=== PATIENT | male | born 1990 | race Caucasian/White ===

== ENCOUNTER 2018-08-20 21:11 | Emergency (ER) | payer SELFPAY ==
[2018-08-20 21:26] VITALS: BP 135/80
--- NOTE | 2018-08-20 21:41 | EDM.PDOC ---
ED HPI GENERAL MEDICAL PROBLEM - General Chief Complaint: Eye Problems Stated Complaint: EYE PROBLEM Time Seen by Provider: 08/20/18 21:36 Source of Information: Reports: Patient - History of Present Illness INITIAL COMMENTS - FREE TEXT/NARRATIVE: Darian Hickman presents to our ED with bilateral eye pain and drainage. Reports symptoms started in his left eye when he woke this morning they been itchy and painful. He is also noticed some greenish yellow discharge. Reports symptoms then moved to his right eye although his left eye is still worse. He has no known sick contacts and reports that no but he's been around has had pinkeye that he is aware of. Denies any other infectious symptoms. He has no allergies. He has no medications. He does not wear contact lenses. Denies any nausea, vomiting, chest pain, shortness of breath, congestion, ear pain. - Related Data Allergies Allergy/AdvReac Type Severity Reaction Status Date / Time No Known Allergies Allergy Verified 08/20/18 21:28 Home Meds: Home Meds Tobramycin 0.3% [Tobramycin 0.3% Ophth Soln] 1 drop OP QID 7 Days #1 bottle [Rx] Past Medical History - Past Surgical History GI Surgical History: Reports: Hernia, Abdominal Male Surgical History: Reports: Other (See Below) Social & Family History - Tobacco Use Smoking Status *Q: Current Every Day Smoker Years of Tobacco use: 13 Packs/Tins Daily: 2 - Caffeine Use Caffeine Use: Reports: Coffee - Recreational Drug Use Recreational Drug Use: No - Living Situation & Occupation Living situation: Reports: Single, with Family ED ROS GENERAL - Review of Systems Review Of Systems: ROS reveals no pertinent complaints other than HPI. ED EXAM GENERAL W FULL EYE - Physical Exam Exam: See Below Exam Limited By: No Limitations General Appearance: Alert, WD/WN, No Apparent Distress Eye Exam: Bilateral Eye: Conjunctival Injection, EOMI, PERRL, Other ( Bilaterally eyes are very watery. There is some greenish discharge noted more prevalent on left than right.) Ears: Normal External Exam Nose: Normal Inspection Course - Vital Signs Last Recorded V/S: Last Vital Signs Temp 98.4 F 08/20/18 21:24 Pulse 76 08/20/18 21:24 Resp 16 08/20/18 21:24 BP 135/80 08/20/18 21:24 Pulse Ox 95 08/20/18 21:24 Departure - Departure Time of Disposition: 21:39 Disposition: Home, Self-Care 01 Clinical Impression: Conjunctivitis Qualifiers: Conjunctivitis type: acute Acute conjunctivitis type: unspecified Laterality: bilateral Qualified Code(s): H10.33 - Unspecified acute conjunctivitis, bilateral - Discharge Information *PRESCRIPTION DRUG MONITORING PROGRAM REVIEWED*: No *COPY OF PRESCRIPTION DRUG MONITORING REPORT IN PATIENT NÉSTOR: No Prescriptions: Tobramycin 0.3% [Tobramycin 0.3% Ophth Soln] 1 drop OP QID 7 Days #1 bottle Instructions: Bacterial Conjunctivitis, [id number], How to Use Eye Drops and Eye Ointments Referrals: PCP,None [Primary Care Provider] - Additional Instructions: You presented to our ED today and were diagnosed with bilateral conjunctivitis, also known as "pink eye." An antibiotic eyedrop was sent to the pharmacy in [facility] [place]. He should take this antibiotic 4 times a day into both of your eyes being careful not to touch her eyeball with the and of the bottle. He should continue this for 7 days. Be sure to wash her hands frequently and avoid itching or rubbing her eyes as this is easily spread. Should symptoms continue or worsen return to the ED or contact your primary care provider.
== END 2018-08-20 21:52 | disposition home or self-care (01) ==
LOC: JD.ED 21:11
DX: H10.33 Unspecified acute conjunctivitis, bilateral (principal); F17.210 Nicotine dependence, cigarettes, uncomplicated
CPT/HCPCS: 99282; 99283

== ENCOUNTER 2019-06-19 15:29 | Emergency (ER) | payer OTHER ==
[2019-06-19 17:05] VITALS: BP 111/77; PULSE 79
[2019-06-19] MEDS ORDERED: Albuterol/Ipratropium 3.0-0.5 MG/3 ML Neb Soln NEB ONE (17:57)
[2019-06-19] MEDS ORDERED: predniSONE 20 MG Tab PO ONE (17:57)
--- NOTE | 2019-06-19 18:13 | EDM.PDOC ---
<Galina Grier - Last Filed: 06/19/19 18:07> ED HPI GENERAL MEDICAL PROBLEM - General Chief Complaint: Respiratory Problem Stated Complaint: SOB Time Seen by Provider: 06/19/19 17:37 Source of Information: Reports: Patient History Limitations: Reports: No Limitations - History of Present Illness INITIAL COMMENTS - FREE TEXT/NARRATIVE: Patient is a pleasant 28-year-old male who presents with complaints of shortness of breath and a dry cough that has been present for 3-4 weeks. He states he started having the trouble with his breathing soon after he quit smoking cigarettes one month ago. When he quit smoking cigarettes, he started vaping and states he probably vapes more nicotine than he did when he smoked the cigarettes. He states the shortness of breath worsens when he lays flat and that the shortness of breath wakes him up at night. He reports chest pain due to the coughing episodes he has been experiencing. He reports he has been using his mother's albuterol nebulizers every 6 hours for the shortness of breath for the past few weeks and has used her albuterol inhaler a few times as well. He does report a history of asthma when he was a child but has not had to use an albuterol inhaler in over eight years. Denies fever, chills, and abdominal pain. Onset: Gradual Duration: Week(s):, Constant - Related Data Allergies Allergy/AdvReac Type Severity Reaction Status Date / Time No Known Allergies Allergy Verified 08/20/18 21:28 Home Meds: Home Meds Tobramycin 0.3% [Tobramycin 0.3% Oph Soln] 1 drop OP QID 7 Days #1 bottle [Rx] predniSONE [Prednisone] 40 mg PO DAILY #10 tablet 06/19/19 [Rx] Past Medical History - Past Surgical History GI Surgical History: Reports: Hernia, Abdominal Male Surgical History: Reports: Other (See Below) Social & Family History - Caffeine Use Caffeine Use: Reports: Coffee - Living Situation & Occupation Living situation: Reports: Single, with Family ED ROS GENERAL - Review of Systems Review Of Systems: See Below Constitutional: Reports: No Symptoms. Denies: Fever, Chills, Weakness, Fatigue HEENT: Reports: No Symptoms. Denies: Throat Pain Respiratory: Reports: Shortness of Breath, Cough (non-productive). Denies: Wheezing, Hemoptysis Cardiovascular: Reports: Chest Pain (with coughing). Denies: Edema, Lightheadedness, Syncope GI/Abdominal: Reports: No Symptoms. Denies: Abdominal Pain, Diarrhea, Nausea, Vomiting Musculoskeletal: Reports: No Symptoms. Denies: Neck Pain, Back Pain Skin: Reports: No Symptoms. Denies: Rash, Erythema Neurological: Reports: No Symptoms. Denies: Dizziness, Headache, Syncope Psychiatric: Reports: No Symptoms ED EXAM, GENERAL - Physical Exam Exam: See Below Exam Limited By: No Limitations General Appearance: Alert, WD/WN, No Apparent Distress Head: Atraumatic, Normocephalic Neck: Normal Inspection, Supple, Non-Tender, Full Range of Motion Respiratory/Chest: No Respiratory Distress, No Accessory Muscle Use, Chest Non- Tender. No: Rales, Rhonchi, Wheezing (at end of expiration in upper lobes) Cardiovascular: Normal Peripheral Pulses, Regular Rate, Rhythm, No Edema, No Gallop, No Murmur, No Rub GI/Abdominal: Normal Bowel Sounds, Soft, Non-Tender, No Organomegaly, No Distention, No Mass Back Exam: Normal Inspection, Full Range of Motion, NT Extremities: Normal Inspection, Normal Range of Motion, Non-Tender, Normal Capillary Refill, No Pedal Edema Neurological: Alert, Oriented, Normal Cognition, Normal Gait, No Motor/Sensory Deficits Psychiatric: Normal Affect, Normal Mood Skin Exam: Warm, Dry, Intact, Normal Color, No Rash Lymphatic: No Adenopathy Course - Vital Signs Last Recorded V/S: Last Vital Signs Temp 98.5 F 06/19/19 17:02 Pulse 79 06/19/19 17:02 Resp 16 06/19/19 17:02 BP 111/77 06/19/19 17:02 Pulse Ox 100 06/19/19 18:08 - Orders/Labs/Meds Orders: Active Orders 24 hr Category Date Time Status RT Aerosol Therapy [RC] ASDIRECTED Care 06/19/19 17:57 Active Meds: Medications Discontinued Medications Generic Name Dose Route Start Last Admin Trade Name Freq PRN Reason Stop Dose Admin Albuterol/Ipratropium 3 ml 06/19/19 17:57 06/19/19 18:07 Duoneb 3.0-0.5 Mg/3 Ml NEB 06/19/19 17:58 3 ml ONETIME ONE Administration Prednisone 40 mg 06/19/19 17:57 06/19/19 18:04 Prednisone PO 06/19/19 17:58 40 mg ONETIME ONE Administration Departure - Departure Disposition: Home, Self-Care 01 Clinical Impression: Reactive airway disease Qualifiers: Asthma severity: moderate Asthma persistence: persistent Asthma complication type: with acute exacerbation Qualified Code(s): J45.41 - Moderate persistent asthma with (acute) exacerbation - Discharge Information Prescriptions: predniSONE [Prednisone] 40 mg PO DAILY #10 tablet Referrals: PCP,None [Primary Care Provider] - Aliyah Blevins PA-C [Physician Blending Tank Tender Helper] - 1 Week Forms: ED Department Discharge Additional Instructions: Try to stop vaping. Take the prednisone 40mg daily for 5 days starting tomorrow. Use the albuterol nebs every 6 hours. Please return if you are worse. Sepsis Event Note - Evaluation Sepsis Screening Result: No Definite Risk - Focused Exam Vital Signs: Vital Signs Temp Pulse Resp BP Pulse Ox Pulse Ox 06/19/19 18:08 100 06/19/19 17:02 98.5 F 79 16 111/77 97 Date Exam was Performed: 06/19/19 Time Exam was Performed: 18:07 - My Orders Last 24 Hours: My Active Orders 06/19/19 17:57 RT Aerosol Therapy [RC] ASDIRECTED - Assessment/Plan Last 24 Hours: My Active Orders 06/19/19 17:57 RT Aerosol Therapy [RC] ASDIRECTED <Zuhair Wallace - Last Filed: 06/19/19 19:46> Course - Re-Assessments/Exams Free Text/Narrative Re-Assessment/Exam: 06/19/19 19:39 I examined the patient myself and I agree with Galina's assessment and plan. I ordered a duoneb, prednisone and a CXR. His CXR looks good. I will need to get him on some prednisone. Departure - Departure Time of Disposition: 19:45 Condition: Good - Discharge Information *PRESCRIPTION DRUG MONITORING PROGRAM REVIEWED*: Not Applicable *COPY OF PRESCRIPTION DRUG MONITORING REPORT IN PATIENT NÉSTOR: Not Applicable Sepsis Event Note - Focused Exam Date Exam was Performed: 06/19/19 Time Exam was Performed: 19:39
--- NOTE | 2019-06-19 19:22 | CR ---
Chest: 2 views of the chest are obtained. Comparison: Prior chest x-ray of 07/13/13. Heart size and mediastinum are normal. Lungs are clear with no acute parenchymal change. Bony structures appear within normal limits for the patient's age. Impression: 1. Nothing acute is seen on 2 view chest x-ray. Diagnostic code #1 Study was dictated in [place] Standard Time
== END 2019-06-19 19:50 | disposition home or self-care (01) ==
LOC: JD.ED 15:29
DX: J45.41 Moderate persistent asthma with (acute) exacerbation (principal)
CPT/HCPCS: 71046; 94640; 99285; A9270; 99283; J7620-GY

== ENCOUNTER 2019-12-04 10:06 | Emergency (ER) | payer SELFPAY ==
[2019-12-04 10:18] VITALS: BP 114/79; PULSE 65
--- NOTE | 2019-12-04 10:29 | EDM.PDOC ---
ED HPI GENERAL MEDICAL PROBLEM - General Chief Complaint: Respiratory Problem Stated Complaint: SOB Time Seen by Provider: 12/04/19 11:05 Source of Information: Reports: Patient History Limitations: Reports: No Limitations - History of Present Illness INITIAL COMMENTS - FREE TEXT/NARRATIVE: 29-year-old male presents to the ED with significant wheezing and dyspnea at rest. Patient symptoms date back to at least April of last year. He was worse in the month of May when he was exposed to cool air. He was seen in the ED on the month of June and prescribed a short 5-day course of steroids which did help immensely. Patient states that over the last few days he has become more short of breath and wheezy. Albuterol nebulizer machine at home as well as metered-dose inhaler have not been helping resolve the wheezing. He denies any upper respiratory tract infection cough or sputum production. No known exposure to COVID-19 virus. He reports he is still smoking a pack per day of cigarettes. Does have a mild smoker's cough. He has an appointment to see Dr. Norman Patel in 3 days time but due to inability to sleep all night and increased shortness of breath elected to come to the ED for evaluation. O2 sats were 93 to 95% on room air. Onset: Gradual Onset Date: 12/02/19 (Tonic problems with asthma symptoms i.e. shortness of breath and wheezing much worse the last 3 days.) Duration: Chronic, Getting Worse Location: Reports: Chest (Rest of breath with audible wheezing.) Quality: Reports: Pressure (Central pressure in upper chest.) Severity: Severe Improves with: Reports: Rest, Other (Transient relief of symptoms with albuterol metered-dose inhaler and home nebulizer albuterol.) Worsens with: Reports: Other Context: Denies: Activity, Exercise (This with exertion.), Lifting, Sick Contact, Trauma, Other Associated Symptoms: Reports: Chest Pain, Cough (Nonproductive cough related to smoking.), Malaise, Shortness of Breath. 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 (see below) (Butyryl metered-dose inhaler and home nebulizer treatment 6 times daily) - Related Data Allergies Allergy/AdvReac Type Severity Reaction Status Date / Time No Known Allergies Allergy Verified 12/04/19 10:19 Home Meds: Home Meds Albuterol Sulfate [Albuterol Sulfate Hfa] 2 puff INH 6XDAY PRN 12/04/19 [History] Albuterol [Proventil Neb Soln] 3 ml NEB 6XDAY PRN 12/04/19 [History] Fluticasone Propionate [Flovent HFA 110 MCG] 2 puff INH BID #1 inhaler 12/04/19 [Rx] predniSONE [Prednisone] 20 mg PO ASDIRECTED #18 tablet 12/04/19 [Rx] Past Medical History Respiratory History: Reports: Asthma Other Respiratory History: asthma as a child - Past Surgical History GI Surgical History: Reports: Hernia, Abdominal Male Surgical History: Reports: Other (See Below) Musculoskeletal Surgical History: Reports: Other (See Below) Other Musculoskeletal Surgeries/Procedures:: Surgery to finger on left hand Social & Family History - Family History Family Medical History: Noncontributory - Tobacco Use Smoking Status *Q: Current Every Day Smoker Years of Tobacco use: 14 Packs/Tins Daily: 1 - Caffeine Use Caffeine Use: Reports: Coffee, Energy Drinks, Soda, Tea - Recreational Drug Use Recreational Drug Use: Yes Drug Use in Last 12 Months: No Recreational Drug Type: Reports: Marijuana/Hashish Recreational Drug Use Frequency: Not Used In Over 6 Months - Living Situation & Occupation Living situation: Reports: Single, with Family ED ROS GENERAL - Review of Systems Review Of Systems: See Below Constitutional: Reports: Malaise, Fatigue, Decreased Appetite (Not sleeping all night.). Denies: Fever, Chills HEENT: Reports: No Symptoms Respiratory: Reports: Shortness of Breath, Wheezing, Cough. Denies: Pleuritic Chest Pain, Sputum, Hemoptysis (No worse than usual. Related to smoking.) Cardiovascular: Reports: Chest Pain, Dyspnea on Exertion. Denies: Blood Pressure Problem (Central chest pressure discomfort.), Claudication, Edema, Lightheadedness, Orthopnea, Palpitations Endocrine: Reports: Fatigue GI/Abdominal: Reports: No Symptoms : Reports: No Symptoms Musculoskeletal: Reports: No Symptoms Skin: Reports: No Symptoms Neurological: Reports: No Symptoms Psychiatric: Reports: No Symptoms Hematologic/Lymphatic: Reports: No Symptoms Immunologic: Reports: No Symptoms ED EXAM, GENERAL - Physical Exam Exam: See Below Exam Limited By: No Limitations General Appearance: Alert, WD/WN, Moderate Distress, Other (Gino distress. She is 36.6. Heart rate 65 and sinus respiratory of 18 with sats of 93 to 95% on room air. BP 114/79.) Eye Exam: Bilateral Eye: Normal Inspection, PERRL Ears: Normal TMs Nose: Nasal Flaring Throat/Mouth: Normal Inspection, Normal Lips, Normal Oropharynx, Other (Normal sized tonsils.) Head: Atraumatic, Normocephalic Neck: Normal Inspection, Supple, Non-Tender, Full Range of Motion. No: Carotid Bruit, Lymphadenopathy (L), Lymphadenopathy (R) Respiratory/Chest: No Accessory Muscle Use, Chest Non-Tender, Respiratory Distress, Decreased Breath Sounds (Lungs are diminished to the lower 40% of lung vang bilaterally.), Wheezing (Diffuse wheezing in all lung vang on expiration). No: Lungs Clear, Normal Breath Sounds Cardiovascular: Normal Peripheral Pulses, Regular Rate, Rhythm, No Edema, No Gallop, No Murmur, No Rub Peripheral Pulses: 3+: Carotid (L), Carotid (R), Posterior Tibial (L), Posterior Tibial (R), Dorsalis Pedis (L), Dorsalis Pedis (R) GI/Abdominal: Normal Bowel Sounds, Soft, Non-Tender, No Organomegaly, No Abnormal Bruit, No Mass, Pelvis Stable, Other (No surgical scars) (Male) Exam: No Hernia Back Exam: Normal Inspection, Full Range of Motion. No: CVA Tenderness (L), CVA Tenderness (R) Extremities: Normal Inspection, Normal Range of Motion, Non-Tender, No Pedal Edema Neurological: Alert, Oriented, CN II-XII Intact, Normal Cognition Psychiatric: Normal Affect, Normal Mood Skin Exam: Warm, Dry, Intact, Normal Color, No Rash Course - Vital Signs Last Recorded V/S: Last Vital Signs Temp 36.6 C 12/04/19 10:14 Pulse 65 12/04/19 10:14 Resp 18 12/04/19 10:14 BP 114/79 12/04/19 10:14 Pulse Ox 90 L 12/04/19 12:07 - Orders/Labs/Meds Orders: Active Orders 24 hr Category Date Time Status RT Aerosol Therapy [RC] ASDIRECTED Care 12/04/19 11:21 Active Chest 1V Frontal [CR] Stat Exams 12/04/19 11:22 Taken Meds: Medications Discontinued Medications Generic Name Dose Route Start Last Admin Trade Name Nakia PRN Reason Stop Dose Admin Albuterol/Ipratropium 3 ml 12/04/19 11:21 12/04/19 12:53 Duoneb 3.0-0.5 Mg/3 Ml NEB 3 ml Q4H PRN Administration Shortness Of Breath/wheezing Prednisone 30 mg 12/04/19 11:26 12/04/19 12:31 Prednisone PO 12/04/19 11:27 30 mg ONETIME ONE Administration - Radiology Interpretation Free Text/Narrative:: 29-year-old male resents to the ED with acute exacerbation of what sounds like chronic asthma. Sounds like he has been having symptoms of asthma with wheezing shortness of breath attacks since April of last year. In spite of this he continues to smoke a pack of cigarettes per day.. Symptoms are much worse over the last 3 days. He was up all night due to dyspnea and inability to lie flat due to shortness of breath. No improvement with home nebulizer medicine every 4 hours i.e. albuterol. Metered-dose inhaler has not been helping at all either. Patient has been placed on one course of steroids in June of this year for 5 days which did improve his symptoms. Minimal cough at this time he is afebrile. O2 sats are 93 to 95% on room air. Exam reveals him to be wheezing throughout all lung vang with decreased air entry to both lower lung vang posteriorly. Plan 1 view chest x-ray to be done. Pulmonary function studies to be done. He will have a DuoNeb treatment now and likely require repeat in 20 minutes or so. Prednisone 30 mg by mouth to be given now. - Re-Assessments/Exams Free Text/Narrative Re-Assessment/Exam: 12/04/19 13:00: He is feeling much improved after being treated with DuoNeb and albuterol during his lung function studies. Function studies are definitely positive for obstructive airway disease. The FVC, FEV1, FEV1, FVC ratio and FEF F 25 to 75% of predicted normal there was a significant response to administered albuterol. And the patient will be discharged on Flovent 110 mcg/puff. He will use 2 puffs morning and bedtime until he regains control of his asthma. He is to continue use albuterol either via metered-dose inhaler or nebulizer as needed every 2 hours and. Placed on prednisone 20 mg twice daily for the next 6 days and then 1 tablet the morning only for another 6 days to bring acute relief to his dyspnea and wheezing. He is strongly encouraged that he must stop smoking as he has the lungs of an 81-year-old at present. Advised to follow-up with Dr. Norman Patel in 3 days time as planned as he will need someone to refill his medications and monitor his response to steroid therapy. there are financial barriers to his treatment plan as he does not have medical insurance at this time. Departure - Departure Time of Disposition: 12:50 Disposition: Home, Self-Care 01 Condition: Fair Clinical Impression: Asthma attacks lasting more than 24 hours - Discharge Information *PRESCRIPTION DRUG MONITORING PROGRAM REVIEWED*: Not Applicable *COPY OF PRESCRIPTION DRUG MONITORING REPORT IN PATIENT NÉSTOR: Not Applicable Prescriptions: Fluticasone Propionate [Flovent HFA 110 MCG] 2 puff INH BID #1 inhaler predniSONE [Prednisone] 20 mg PO ASDIRECTED #18 tablet Instructions: Steps to Quit Smoking, [id number], Asthma, Adult Referrals: Norman Patel Jr, MD [Primary Care Provider] - Forms: ED Department Discharge Additional Instructions: [facility] in the emergency room today in regards to symptoms of asthma dating back to at least April of last year. Intermittent worsening of symptoms particularly over the last 3 days and particular last night where you are unable to sleep at all due to shortness of breath and wheezing. Emanation reveals expiratory wheezing throughout all lung vang with O2 sats of 93 to 95% on room air with normal being 97 to 98%. Marty function studies reveal significant obstructive airway disease confirming fairly severe asthma. Treated with DuoNeb and albuterol while in the ED. Modest improvement did occur with these medications in regards to airflow in your lungs. Initial dose of prednisone was given in the ED 30 mg by mouth. You need another 20 mg tonight at bedtime about 10 or 11:00 tonight. After this it is to be taken twice daily with breakfast and supper for the next 6 days and then once in the morning only for another 6 days to bring asthma symptoms under control. You are also going to need a steroid inhaler and suggest Flovent 110 mcg inhaler using 2 puffs in the morning and 2 puffs at bedtime to bring your asthma under control long-term. It should get to the point where you would rarely need your rescue inhaler or have to use your home nebulizer for treatment. It should also mean you never get up at nighttime to use your inhaler be due to shortness of breath. Suggest follow-up with Dr. Patel as planned in 3 days time as he will have to follow you along and make sure that you respond to the above treatment and to refill medications as needed. Sepsis Event Note (ED) - Evaluation Sepsis Screening Result: No Definite Risk - Focused Exam Vital Signs: Vital Signs Temp Pulse Resp BP Pulse Ox Pulse Ox 12/04/19 12:07 90 L 12/04/19 10:14 36.6 C 65 18 114/79 94 L - My Orders Last 24 Hours: My Active Orders 12/04/19 11:21 RT Aerosol Therapy [RC] ASDIRECTED 12/04/19 11:22 Chest 1V Frontal [CR] Stat - Assessment/Plan Last 24 Hours: My Active Orders 12/04/19 11:21 RT Aerosol Therapy [RC] ASDIRECTED 12/04/19 11:22 Chest 1V Frontal [CR] Stat
[2019-12-04] MEDS ORDERED: Albuterol/Ipratropium 3.0-0.5 MG/3 ML Neb Soln NEB PRN (11:21)
[2019-12-04] MEDS ORDERED: predniSONE 20 MG Tab PO ONE (11:26)
--- NOTE | 2019-12-04 15:43 | CR ---
Chest: PA view of the chest was obtained. Comparison: Prior chest x-ray of 06/19/19. Heart size and mediastinum are normal. Lungs are clear with no acute parenchymal change. Bony structures are grossly intact. Impression: 1. Nothing acute is seen on PA chest x-ray. Diagnostic code #1 This report was dictated in [facility]
== END 2019-12-04 13:15 | disposition home or self-care (01) ==
LOC: JD.ED 10:06
DX: J45.909 Unspecified asthma, uncomplicated (principal); F17.210 Nicotine dependence, cigarettes, uncomplicated; Z79.899 Other long term (current) drug therapy
CPT/HCPCS: 71045; 99285; J7512; 99283; J7620-GY

== ENCOUNTER 2020-09-11 06:28 | Emergency (ER) | payer SELFPAY ==
[2020-09-11 06:36] VITALS: BP 130/78; PULSE 55
[2020-09-11] MEDS ORDERED: Amoxicillin/Clavulanate K 875-125 MG Tab PO ONE (07:02)
--- NOTE | 2020-09-11 07:02 | EDM.PDOC ---
ED HPI GENERAL MEDICAL PROBLEM - General Chief Complaint: Skin Complaint Stated Complaint: SWOLLEN BOTTOM LIP Time Seen by Provider: 09/11/20 06:40 Source of Information: Reports: Patient History Limitations: Reports: No Limitations - History of Present Illness INITIAL COMMENTS - FREE TEXT/NARRATIVE: Patient arrived ED by private vehicle Complains of swelling of the lower lip States that he squeezed a small pimple underneath the right lower lip 2 days ago The next day he awoke with swelling of the right lower lip Overnight the swelling has spread across the lower lip Pain severity is rated "between 4 and 6" Denies dyspnea, dysphagia, or swelling of tongue or throat Denies fever, nausea, vomiting Denies prior history of similar symptoms Lip Pain Score (Numeric/FACES): 3 - Related Data Allergies Allergy/AdvReac Type Severity Reaction Status Date / Time No Known Allergies Allergy Verified 09/12/20 10:34 Home Meds: Home Meds Albuterol Sulfate [Albuterol Sulfate Hfa] 2 puff INH 6XDAY PRN 12/04/19 [History] Albuterol [Proventil Neb Soln] 3 ml NEB 6XDAY PRN 12/04/19 [History] Fluticasone Propionate [Flovent HFA 110 MCG] 2 puff INH BID #1 inhaler 12/04/19 [Rx] Amoxicillin/Clavulanate K [Augmentin 875-125 MG] 1 tab PO Q12H #14 tab 09/11/20 [Rx] Escitalopram Oxalate [Lexapro] 20 mg PO BEDTIME 09/11/20 [History] oxyCODONE HCl/Acetaminophen [Percocet 5-325 mg Tablet] 1 - 2 each PO Q4H PRN #12 tablet 09/12/20 [Rx] Past Medical History Respiratory History: Reports: Asthma Other Respiratory History: asthma as a child - Past Surgical History GI Surgical History: Reports: Hernia, Abdominal Male Surgical History: Reports: Other (See Below) Other Male Surgeries/Procedures: Undescended testicle Musculoskeletal Surgical History: Reports: Other (See Below) Other Musculoskeletal Surgeries/Procedures:: Surgery to finger on left hand Social & Family History - Family History Family Medical History: No Pertinent Family History - Caffeine Use Caffeine Use: Reports: Coffee - Recreational Drug Use Recreational Drug Use: Yes Recreational Drug Type: Reports: Marijuana/Hashish - Living Situation & Occupation Living situation: Reports: Single, with Family ED ROS GENERAL - Review of Systems Review Of Systems: See Below Free Text/Narrative/Comment: Constitutional - no fever ENT - no rhinorrhea; no congestion; no epistaxis; lip swelling; no dental pain; no throat or tongue swelling Respiratory - no shortness of breath Gastrointestinal - no nausea; no vomiting Integumentary - no rash; no urticaria ED EXAM, SKIN/RASH Exam: See Below Text/Narrative:: Constitutional - awake; alert; no acute distress Head - no facial swelling or weakness Eyes - extra ocular motion intact; conjunctiva normal ENT - no nasal deformity; no epistaxis; normal phonation; oropharynx normal; moderate, diffuse swelling of lower lip with palpable nodular or cystic lesion within right lower lip; no gingival lesions; no perioral edema, induration, or erythema; small, 1 mm scab on skin under vermilion border of right lower lip Neck - no swelling Respiratory - normal respiratory effort Musculoskeletal - grossly normal strength and motion Skin - warm; dry Neurologic - normal speech; gait intact Psychiatric - normal mood and affect; memory and attention normal Course - Vital Signs Text/Narrative:: . 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 research by automatic typewriter inspector determined reports of angioedema associated with escitalopram and other SSRI medications Discontinuation of escitalopram was felt to be prudent patient was advised to defer antibiotic therapy pending short-term clinical observation 0750 - Case was reviewed with Dr Wilcox (covering patient's primary care group) to facilitate short-term follow-up and discuss alternate antidepressant therapy Patient was felt to be stable for outpatient follow-up Return precautions were provided Last Recorded V/S: Last Vital Signs Temp 35.8 C L 09/11/20 06:33 Pulse 55 L 09/11/20 06:33 Resp 16 09/11/20 06:33 BP 130/78 09/11/20 06:33 Pulse Ox 99 09/11/20 06:33 - Orders/Labs/Meds Meds: Medications Discontinued Medications Generic Name Dose Route Start Last Admin Trade Name Freq PRN Reason Stop Dose Admin Amoxicillin/Clavulanate Potassium 1 tab 09/11/20 07:02 09/11/20 07:08 Amoxicillin/Clavulanate K 875-125 Mg Tab PO 09/11/20 07:03 1 tab ONETIME ONE Administration Departure - Departure Time of Disposition: 08:07 Disposition: Home, Self-Care 01 Condition: Good Clinical Impression: Angioedema Qualifiers: Encounter type: initial encounter Qualified Code(s): T78.3XXA - Angioneurotic edema, initial encounter - Discharge Information Prescriptions: Amoxicillin/Clavulanate K [Augmentin 875-125 MG] 1 tab PO Q12H #14 tab Instructions: Angioedema Referrals: PCP,None [Primary Care Provider] - Forms: ED Department Discharge Additional Instructions: Your lip swelling may be due to ANGIOEDEMA, which is caused by the body's immune system This is a rare reaction, which could be associated with Lexapro May resume general activity and regular diet as tolerated Stop taking ESCITALOPRAM (Lexapro) May start AMOXICILLIN/CLAVULANATE antibiotic for possible infection, if lip swe lling is not improving over next 48 hours Follow-up with primary care provider is recommended in 2-3 days, for reevaluation of lip swelling and considerations of a replacement for the Lexapro Sepsis Event Note (ED) - Evaluation Sepsis Screening Result: No Definite Risk
== END 2020-09-11 08:35 | disposition home or self-care (01) ==
LOC: JD.ED 06:28
DX: T78.3XXA Angioneurotic edema, initial encounter (principal); J45.909 Unspecified asthma, uncomplicated
CPT/HCPCS: 99283; A9270

== ENCOUNTER 2020-09-12 10:20 | Emergency (ER) | payer SELFPAY ==
--- NOTE | 2020-09-12 10:34 | EDM.PDOC ---
ED HPI GENERAL MEDICAL PROBLEM - General Chief Complaint: ENT Problem Stated Complaint: SWOLLEN LIP IS WORSENING Time Seen by Provider: 09/12/20 10:33 Source of Information: Reports: Patient History Limitations: Reports: No Limitations - History of Present Illness INITIAL COMMENTS - FREE TEXT/NARRATIVE: 29-year-old male presents to the ED with increased swelling of his entire lower lip. Patient states that 3 days ago he had a pimple on the chin just below his lip and he squeezed it hard to break it open. Since then he has developed increased pain and swelling of the entire lower lip. He also reports that he did bite the inside of his lower lip 3 to 4 days ago. He was seen in the ED early yesterday morning by Dr. Nunez and prescribed Augmentin 875/1 2 5 mg twice daily. Patient states that over the last 24 hours the lip is become so painful that it is throbbing and interfering with ability to sleep and eat. He states pain is 10 out of 10 this morning. He states the lower lip has become much more swollen over the last 24 hours. He has no systemic signs of infection fever chills nausea or vomiting. 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.) Lip Pain Score (Numeric/FACES): 10 - Related Data Allergies Allergy/AdvReac Type Severity Reaction Status Date / Time No Known Allergies Allergy Verified 09/12/20 10:34 Home Meds: Home Meds Albuterol Sulfate [Albuterol Sulfate Hfa] 2 puff INH 6XDAY PRN 12/04/19 [History] Albuterol [Proventil Neb Soln] 3 ml NEB 6XDAY PRN 12/04/19 [History] Fluticasone Propionate [Flovent HFA 110 MCG] 2 puff INH BID #1 inhaler 12/04/19 [Rx] Amoxicillin/Clavulanate K [Augmentin 875-125 MG] 1 tab PO Q12H #14 tab 09/11/20 [Rx] Escitalopram Oxalate [Lexapro] 20 mg PO BEDTIME 09/11/20 [History] oxyCODONE HCl/Acetaminophen [Percocet 5-325 mg Tablet] 1 - 2 each PO Q4H PRN #12 tablet 09/12/20 [Rx] Past Medical History Respiratory History: Reports: Asthma Other Respiratory History: asthma as a child - Past Surgical History GI Surgical History: Reports: Hernia, Abdominal Male Surgical History: Reports: Other (See Below) Other Male Surgeries/Procedures: Undescended testicle Musculoskeletal Surgical History: Reports: Other (See Below) Other Musculoskeletal Surgeries/Procedures:: Surgery to finger on left hand Social & Family History - Family History Family Medical History: No Pertinent Family History - Caffeine Use Caffeine Use: Reports: Coffee - Living Situation & Occupation Living situation: Reports: Single, with Family ED ROS ENT - Review of Systems Review Of Systems: See Below Constitutional: Reports: Weakness, Fatigue (From not sleeping well.). Denies: Fever, Chills, Malaise HEENT: Reports: No Symptoms Respiratory: Reports: No Symptoms Cardiovascular: Reports: No Symptoms Endocrine: Reports: No Symptoms GI/Abdominal: Reports: No Symptoms : Reports: No Symptoms Musculoskeletal: Reports: No Symptoms Skin: Reports: Other (Infection of the upper surface of his chin with severe swelling of the entire lower lip with induration. No obvious redness of the chin itself. He does have a pustule in the mid lip where the abscess is getting ready to point.) Neurological: Reports: No Symptoms Psychiatric: Reports: Anxiety, Depression Hematologic/Lymphatic: Reports: No Symptoms ED EXAM, ENT - Physical Exam Exam: See Below Exam Limited By: No Limitations General Appearance: Alert, WD/WN, Mild Distress, Other (Patient has obvious swelling of his entire lower lip. Vital signs show temperature 36.3 degrees. Heart rate 58 and sinus. Respiratory of 12 with O2 sats of 98% room air BP 127/68.) Mouth/Throat: Lip Swelling (Entire lower lip is severely swollen and indurated. There is a pustule central superior surface of the lip where the abscess is getting ready to point. The chin itself is minimally swollen and not erythematous. There is no obvious abnormalities on palpation of the inner aspect of the lower lip. ), Other (Patient does have a small pustule in the midline just inferior to the vermilion border of his lower lip. This is in the distribution of hair follicles suggesting they are the source of the infection.) Head: Normocephalic, Scalp Abrasions Neck: Normal Inspection, Supple, Non-Tender, Full Range of Motion. No: Ly mphadenopathy (L), Lymphadenopathy (R) Respiratory/Chest: No Respiratory Distress, Lungs Clear, Normal Breath Sounds, No Accessory Muscle Use Extremities: Normal Inspection, Normal Range of Motion, Non-Tender, No Pedal Edema Neurological: Alert, Oriented, CN II-XII Intact, Normal Cognition Skin: Warm, Dry, Intact, Normal Color, Other (Patient has marked swelling of the entire lower lip. There is a small pustule just inferior to the vermilion border on the superior aspect of his chin in the distribution of hair follicles. This likely was the source of the infection versus a sebaceous cyst.) Course - Vital Signs Last Recorded V/S: Last Vital Signs Temp 36.3 C 09/12/20 10:28 Pulse 72 09/12/20 12:15 Resp 12 09/12/20 10:28 BP 128/78 09/12/20 12:15 Pulse Ox 98 09/12/20 12:15 - Orders/Labs/Meds Meds: Medications Discontinued Medications Generic Name Dose Route Start Last Admin Trade Name Freq PRN Reason Stop Dose Admin Hydromorphone HCl 1 mg 09/12/20 10:40 09/12/20 11:03 Hydromorphone 1 Mg/Ml Syringe IVPUSH 09/12/20 10:41 1 mg ONETIME ONE Administration Dextrose/Sodium Chloride 1,000 mls @ 500 mls/hr 09/12/20 10:45 09/12/20 11:01 Dextrose 5%-Normal Saline IV 500 mls/hr ASDIRECTED ZACHARY Administration Clindamycin Phosphate 900 mg/ 50 mls @ 100 mls/hr 09/12/20 10:40 09/12/20 11:08 Premix IV 09/12/20 11:09 100 mls/hr ONETIME ONE Administration Ketorolac Tromethamine 30 mg 09/12/20 10:45 09/12/20 11:19 Ketorolac 30 Mg/Ml Sdv IVPUSH 30 mg ONETIME ZACHARY Administration Ondansetron HCl 4 mg 09/12/20 10:40 09/12/20 11:02 Ondansetron 4 Mg/2 Ml Sdv IVPUSH 09/12/20 10:41 4 mg ONETIME ONE Administration - Radiology Interpretation Free Text/Narrative:: 29-year-old male presents to the ED due to increased pain and swelling of his entire lower lip. Patient states he bit the inside of his lip accidentally about 4 days ago. Then he developed a small pimple on the superior surface of his chin just inferior to the vermilion border in the midline. He gave it a good squeeze to pop it 2 days ago and subsequently has developed increased pain and swelling of the entire lower lip. Patient was seen in the ED yesterday morning early by Dr. Nunez. He was started on Augmentin 875/1 2 5 mg by mouth which she is taken 2 tablets. Patient states the pain at present is severe. He could hardly sleep all night due to pulsation and throbbing of his entire lip. Exam reveals induration and swelling of the entire lower lip. No inside abnormalities appreciated. No lymphadenopathy. There is an area where it appears to be pointing in the midline of the lip. Plan IV antibiotic. He will be given clindamycin 900 mg IV. Toradol 30 mg IV and Dilaudid 1 mg IV for pain relief. Plan will be to continue antibiotic treatment that he has been started on. Will also be provided pain medication until the swelling of his lip goes down which will block to be another 48 hours. - Re-Assessments/Exams Free Text/Narrative Re-Assessment/Exam: 09/12/20 12:07 Patient has finished his IV clindamycin on her milligrams infusion. He is feeling much better as far as pain goes. He will continue the Augmentin tablets 875/1 2 5 mg twice daily as previously prescribed by Dr. Nunez. He was given 12 Percocet tablets 1 or 2 every 4-6 hours necessary for pain relief over the next couple of days until the swelling of his lip goes down. Departure - Departure Time of Disposition: 12:00 Disposition: Home, Self-Care 01 Condition: Fair Clinical Impression: Cellulitis of vermilion border of lower lip - Discharge Information *PRESCRIPTION DRUG MONITORING PROGRAM REVIEWED*: Not Applicable *COPY OF PRESCRIPTION DRUG MONITORING REPORT IN PATIENT NÉSTOR: Not Applicable Prescriptions: oxyCODONE HCl/Acetaminophen [Percocet 5-325 mg Tablet] 1 - 2 each PO Q4H PRN #12 tablet PRN Reason: pain relief. Instructions: Cellulitis, Adult, Ingrown Hair Referrals: Norman Patel Jr, MD [Primary Care Provider] - Forms: ED Department Discharge Additional Instructions: Evaluation in the emergency room today in regards to worsening infection of the entire lower lip. We call this cellulitis. Primary infection appears to be a infected sebaceous cyst or hair follicle just inferior to the lower lip in the midline. This likely is due to an infected hair follicle as you suggested. Continue the Augmentin 875/1 2 5 mg tablets twice daily as prescribed by Dr. Nunez yesterday. Unfortunately the infection spread faster than the antibiotics it could take effect. It usually takes antibiotics 2 days to start to work. In the emergency room today you received antibiotic intravenously. This was called clindamycin 900 mg IV. He also received medication for pain relief with Dilaudid 1 mg and Toradol 30 mg IV. I have written a prescription for a few Percocet 5/325 mg tablets 1 or 2 every 4-6 hours necessary for pain relief until the swelling and infection comes under control which would likely be over the next 48 hours. Pain medicine should be taken with a little bit of food in your stomach and not on empty stomach as it may cause nausea and vomiting. Return to the ED if not markedly improved in the next 48 hours with medication. Sepsis Event Note (ED) - Evaluation Sepsis Screening Result: No Definite Risk - Focused Exam Vital Signs: Vital Signs Temp Pulse Resp BP Pulse Ox 09/12/20 12:15 72 128/78 98 09/12/20 12:00 64 120/72 09/12/20 10:28 36.3 C 57 L 12 127/68 98
[2020-09-12] MEDS ORDERED: Clindamycin Phosphate in D5W 900 MG in Premix Bag 1 BAG IV ONE ×2 (10:40)
[2020-09-12] MEDS ORDERED: HYDROmorphone 1 MG/ML Syringe IVPUSH ONE (10:40)
[2020-09-12] MEDS ORDERED: Ondansetron 4 MG/2 ML SDV IVPUSH ONE (10:40)
[2020-09-12] MEDS ORDERED: Ketorolac 30 MG/ML SDV IVPUSH SCH (10:45)
[2020-09-12] MEDS ORDERED: Dextrose 5%-0.9% NaCl 1,000 ML IV SCH (10:45)
[2020-09-12 12:24] VITALS: BP 128/78; PULSE 72
== END 2020-09-12 12:24 | disposition home or self-care (01) ==
LOC: JD.ED 10:20
DX: K13.0 Diseases of lips (principal); J45.909 Unspecified asthma, uncomplicated
CPT/HCPCS: 96365; 96375; 99283; J1170; J1885; J2405; J3490; J7042; 99284

== ENCOUNTER 2023-01-31 20:31 | Emergency (ER) | payer SELFPAY ==
[2023-01-31] MEDS ORDERED: Sulfamethoxazole/Trimethoprim 800-160 MG Tab PO ONE ×2 (22:11→22:38)
[2023-02-01 05:33] VITALS: BP 126/69; PULSE 101
== END 2023-01-31 22:30 | disposition home or self-care (01) ==
LOC: JD.ED 20:31
DX: L03.116 Cellulitis of left lower limb (principal); J45.909 Unspecified asthma, uncomplicated; Z87.891 Personal history of nicotine dependence
CPT/HCPCS: 10160; 87070; 87077; 87186; 87205; 99284; A9270; 99283